=== PATIENT | male | born 1940 | race Caucasian/White ===

== ENCOUNTER 2021-04-04 08:58 | Inpatient (IN) | payer MEDICARE ==
[~2021-04-04] VITALS: Ht 185.4 cm; Wt 80.0 kg
[~2021-04-04 08:58] MED LIST: ALLOPURINOL300 MG PO; AMOXICILLIN500 MG PO; AVODART0.5 MG PO; AZITHROMYCIN500 MG PO; CEPHALEXIN500 MG PO; COLCHICINE PO; LORTAB 5/3255 MG PO; LOSARTAN POTASS25 MG PO; NAPROSYN500 MG PO; OMNICEF300 M1 PO; ROBITUSSIN AC10 ML PO; TERAZOSIN5 MG PO
[2021-04-04 09:28] LABS: GFR > 60 ML/MIN (>=60 (CALC)); GFR FOR AFR.AMER. > 60 ML/MIN (>=60 (CALC))
[2021-04-04 09:30] LABS: HEMATOCRIT 32.7 % (39.0-50.0); HEMOGLOBIN 10.7 g/dl (14.0-18.0); MEAN CELL VOLUME 100.3 fL CALC (80.0-100.0); MEAN CORPUSCULAR HGB 32.8 pG CALC (26.0-32.0); MEAN CORPUSCULAR HGB CONC 32.7 g/dL CAL (32.0-36.0); NEUT# 7.84 thou/uL (1.82-7.42); RED BLOOD COUNT 3.26 mill/uL (4.70-6.10); RED CELL DISTRI WIDTH 14.4 % (11.5-15.5)
[2021-04-04 09:50] LABS: ALBUMIN 2.8 g/dL (3.2-5.0); ALKALINE PHOSPHATASE 125 u/l (38-126); ANION GAP 13 (6-22 (CALC)); BILIRUBIN, TOTAL 0.7 mg/dL (0.0-1.4); BUN 36 mg/dL (8-23); BUN/CREATININE RATIO 32 (12-20 (CALC)); CARBON DIOXIDE 22 mmol/l (22-30); CHLORIDE 106 mmol/l (95-108); CREATININE 1.1 mg/dL (0.7-1.3); GFR > 60 ML/MIN (>=60 (CALC)); GFR FOR AFR.AMER. > 60 ML/MIN (>=60 (CALC)); POTASSIUM 3.3 mmol/l (3.5-5.1); SODIUM 137 mmol/l (137-146); TOTAL PROTEIN 6.5 g/dL (6.3-8.2)
[2021-04-04 09:54] LABS: SGOT/AST 78 u/l (19-48)
[2021-04-04] MEDS ORDERED: DEXAMETHASON0.5 MG PO (09:54)
[2021-04-04] MEDS ORDERED: COLCHICINE0.6 M2 PO (09:55)
[2021-04-04 10:58] LABS: ACT PARTIAL THROMBO TIME 22.3 SECONDS (20.0-32.5); INTERNATIONAL NORMALIZED RATIO 1.1 RATIO (0.7-1.3); PROTHROMBIN TIME 11.6 SECONDS (9.0-12.5)
[2021-04-04] MEDS ORDERED: FUROSEMIDE20 MG PO (11:01)
[2021-04-04 13:11] VITALS: BP 130/68
[2021-04-04 15:49] VITALS: BP 147/80
[2021-04-04 19:10] VITALS: BP 161/74
[2021-04-05] VITALS (8 sets, daily range): BP systolic 160–186; BP diastolic 80–93
[2021-04-05 05:37] LABS: HEMATOCRIT 30.1 % (39.0-50.0); HEMOGLOBIN 10.3 g/dl (14.0-18.0); IMMATURE GRANULOCYTES 4.4 % (0.0-5.0); MEAN CELL VOLUME 97.1 fL CALC (80.0-100.0); MEAN CORPUSCULAR HGB 33.2 pG CALC (26.0-32.0); MEAN CORPUSCULAR HGB CONC 34.2 g/dL CAL (32.0-36.0); NEUT# 8.53 thou/uL (1.82-7.42); RED BLOOD COUNT 3.1 mill/uL (4.70-6.10); RED CELL DISTRI WIDTH 14.3 % (11.5-15.5)
[2021-04-05 06:05] LABS: ALBUMIN 2.5 g/dL (3.2-5.0); ALKALINE PHOSPHATASE 104 u/l (38-126); BILIRUBIN, TOTAL 0.6 mg/dL (0.0-1.4); BUN 37 mg/dL (8-23); BUN/CREATININE RATIO 36 (12-20 (CALC)); C-REACTIVE PROTEIN 4.5 mg/dL (0-0.9); CARBON DIOXIDE 22 mmol/l (22-30); CHLORIDE 103 mmol/l (95-108); GFR > 60 ML/MIN (>=60 (CALC)); GFR FOR AFR.AMER. > 60 ML/MIN (>=60 (CALC)); MAGNESIUM 2.2 mg/dL (1.6-2.3); SGOT/AST 60 u/l (19-48); SODIUM 139 mmol/l (137-146); TOTAL PROTEIN 5.8 g/dL (6.3-8.2)
[2021-04-05 06:07] LABS: ANION GAP 18 (6-22 (CALC)); POTASSIUM 3.6 mmol/l (3.5-5.1)
[2021-04-05 14:35] LABS: URINE BILIRUBIN - DIPSTICK NEGATIVE (NEGATIVE); URINE BLOOD DIPSTICK NEGATIVE (NEGATIVE); URINE COLOR YELLOW; URINE GLUCOSE - DIPSTICK NEGATIVE (NEGATIVE); URINE KETONE NEGATIVE (NEGATIVE); URINE LEUK ESTERASE NEGATIVE (NEGATIVE); URINE NITRITE - DIPSTICK NEGATIVE (Negative); URINE PH 6.5 (4.5-8.0); URINE PROTEIN - DIPSTICK NEGATIVE (NEG-TRACE); URINE UROBILINOGEN - DIPSTICK 0.2 E.U./dL (0.2)
[2021-04-06] VITALS (8 sets, daily range): BP systolic 120–197; BP diastolic 66–93
[2021-04-06 05:30] LABS: HEMOGLOBIN 10.1 g/dl (14.0-18.0); MEAN CELL VOLUME 98.4 fL CALC (80.0-100.0); MEAN CORPUSCULAR HGB 33.1 pG CALC (26.0-32.0); MEAN CORPUSCULAR HGB CONC 33.7 g/dL CAL (32.0-36.0); NEUT# 5.94 thou/uL (1.82-7.42); RED BLOOD COUNT 3.05 mill/uL (4.70-6.10); RED CELL DISTRI WIDTH 14.6 % (11.5-15.5)
[2021-04-06 05:38] LABS: ALBUMIN 2.3 g/dL (3.2-5.0); ALKALINE PHOSPHATASE 91 u/l (38-126); ANION GAP 12 (6-22 (CALC)); BILIRUBIN, TOTAL 0.5 mg/dL (0.0-1.4); BUN 38 mg/dL (8-23); BUN/CREATININE RATIO 33 (12-20 (CALC)); CARBON DIOXIDE 22 mmol/l (22-30); CHLORIDE 112 mmol/l (95-108); CREATININE 1.2 mg/dL (0.7-1.3); GFR 58 ML/MIN (>=60 (CALC)); GFR FOR AFR.AMER. > 60 ML/MIN (>=60 (CALC)); SGOT/AST 55 u/l (19-48); SODIUM 141 mmol/l (137-146); TOTAL PROTEIN 5.5 g/dL (6.3-8.2)
[2021-04-07] VITALS: BP 164/85
[2021-04-07 04:00] VITALS: BP 167/85
[2021-04-07 05:50] LABS: HEMOGLOBIN 9.5 g/dl (14.0-18.0); MEAN CORPUSCULAR HGB 32.4 pG CALC (26.0-32.0); MEAN CORPUSCULAR HGB CONC 32.8 g/dL CAL (32.0-36.0); NEUT# 6.4 thou/uL (1.82-7.42); RED BLOOD COUNT 2.93 mill/uL (4.70-6.10); RED CELL DISTRI WIDTH 14.9 % (11.5-15.5)
[2021-04-07 06:13] LABS: IMMATURE GRANULOCYTES 6.3 % (0.0-5.0)
[2021-04-07 06:14] LABS: ALBUMIN 2.2 g/dL (3.2-5.0); ALKALINE PHOSPHATASE 81 u/l (38-126); ANION GAP 9 (6-22 (CALC)); BILIRUBIN, TOTAL 0.7 mg/dL (0.0-1.4); BUN 30 mg/dL (8-23); BUN/CREATININE RATIO 31 (12-20 (CALC)); C-REACTIVE PROTEIN 5.1 mg/dL (0-0.9); CARBON DIOXIDE 23 mmol/l (22-30); CHLORIDE 111 mmol/l (95-108); GFR > 60 ML/MIN (>=60 (CALC)); GFR FOR AFR.AMER. > 60 ML/MIN (>=60 (CALC)); POTASSIUM 3.9 mmol/l (3.5-5.1); SGOT/AST 39 u/l (19-48); SODIUM 140 mmol/l (137-146); TOTAL PROTEIN 5.2 g/dL (6.3-8.2)
[2021-04-07 08:00] VITALS: BP 164/83
[2021-04-07 10:27] VITALS: BP 168/83
[2021-04-07] MEDS ORDERED: XARELTO STARTER1 TAB PO (13:26)
[2021-04-07] MEDS ORDERED: ZITHROMAX250 MG PO (13:26)
== END 2021-04-07 16:08 | disposition home health service (06) | DRG 177 ==
LOC: ED 08:58 → ED-I 10:40 → ED 10:59 → MS2 11:00
PROVIDERS: Family Medicine; Nurse Practitioner; ADMIT Hospitalist; ATTEND Hospitalist
PROC: XW033E5 Introduction of Remdesivir Anti-infective into Peripheral Vein, Percutaneous Approach, New Technology Group 5 (ICD-10-PCS; principal; 2021-04-04)
DX: U07.1 COVID-19 (principal); J12.82 Pneumonia due to coronavirus disease 2019; I26.99 Other pulmonary embolism without acute cor pulmonale; J96.01 Acute respiratory failure with hypoxia; E87.2 Acidosis; I10 Essential (primary) hypertension; F03.90 Unspecified dementia, unspecified severity, without behavioral disturbance, psychotic disturbance, mood disturbance, and anxiety; M10.9 Gout, unspecified
CPT/HCPCS: J1644; J1650; Q9967

== ENCOUNTER 2023-05-06 14:36 | Inpatient (IN) | payer MEDICARE ==
[~2023-05-06] VITALS: Ht 182.9 cm; Wt 88.0 kg
[2023-05-06] VITALS (74 sets, daily range): BP systolic 76–148; BP diastolic 32–75
[~2023-05-06 14:36] MED LIST changes: +COLCHICINE0.6 M2 PO; +DEXAMETHASON0.5 MG PO; +FUROSEMIDE20 MG PO; +XARELTO STARTER1 TAB PO; +ZITHROMAX250 MG PO
[2023-05-06] MEDS ORDERED: B12 FAST DIS5000 MCG PO (14:57)
[2023-05-06] MEDS ORDERED: FERROUS SULFAT325 MG PO (14:59)
[2023-05-06] MEDS ORDERED: SENNA/DSS1 TAB PO (15:00)
[2023-05-06] MEDS ORDERED: TAMSULOSIN0.4 MG PO (15:01)
[2023-05-06] MEDS ORDERED: CARVEDILOL12.5 MG PO (15:03)
[2023-05-06 15:12] LABS: BASO% 0.3 % (0-3); EOS% 3.3 % (0-8); HEMOGLOBIN 6.8 g/dl (14.0-18.0); IMMATURE GRANULOCYTES 0.6 % (0.0-5.0); LYMPH% 11.9 % (15-41); MEAN CORPUSCULAR HGB 35.2 pG CALC (26.0-32.0); MEAN CORPUSCULAR HGB CONC 30.9 g/dL CAL (32.0-36.0); MONO% 14.5 % (2-13); NEUT# 6.77 thou/uL (1.82-7.42); NEUT% 69.4 % (42-76); RED BLOOD COUNT 1.93 mill/uL (4.70-6.10); RED CELL DISTRI WIDTH 14.7 % (11.5-15.5)
[2023-05-06 15:22] LABS: BUN 39 mg/dL (8-23); BUN/CREATININE RATIO 25 (12-20 (CALC)); CARBON DIOXIDE 23 mmol/l (22-30); CREATININE 1.6 mg/dL (0.7-1.3); GFR FOR AFR.AMER. 50 ML/MIN (>=60 (CALC)); GFR OTHER RACES 41 ML/MIN (>=60 (CALC))
[2023-05-06 15:23] LABS: ALBUMIN 2.8 g/dL (3.2-5.0); ALKALINE PHOSPHATASE 85 u/l (38-126); LIPASE 12 u/l (23-300)
[2023-05-06 15:25] LABS: ANION GAP 9 (6-22 (CALC)); CHLORIDE 110 mmol/l (95-108); POTASSIUM 4.1 mmol/l (3.5-5.1); SODIUM 138 mmol/l (137-146)
[2023-05-06 15:41] LABS: BILIRUBIN, TOTAL 0.8 mg/dL (0.2-1.3); SGOT/AST 40 u/l (19-48)
[2023-05-06 16:42] LABS: URINE BLOOD DIPSTICK Negative (NEGATIVE); URINE COLOR Yellow; URINE GLUCOSE - DIPSTICK Negative (NEGATIVE); URINE KETONE Trace mg/dL (NEGATIVE); URINE LEUK ESTERASE Negative (NEGATIVE); URINE NITRITE - DIPSTICK Negative (Negative); URINE PH 5.5 (4.5-8.0); URINE PROTEIN - DIPSTICK Trace mg/dL (NEG-TRACE); URINE SPECIFIC GRAVITY 1.015
[2023-05-07] VITALS (22 sets, daily range): BP systolic 123–160; BP diastolic 61–88
[2023-05-07 06:37] LABS: BASO% 0.3 % (0-3); EOS% 5.4 % (0-8); HEMATOCRIT 27.6 % (39.0-50.0); IMMATURE GRANULOCYTES 0.9 % (0.0-5.0); LYMPH% 13.1 % (15-41); MEAN CORPUSCULAR HGB 34.6 pG CALC (26.0-32.0); MEAN CORPUSCULAR HGB CONC 33.3 g/dL CAL (32.0-36.0); MONO% 13.2 % (2-13); NEUT# 6.63 thou/uL (1.82-7.42); NEUT% 67.1 % (42-76); RED BLOOD COUNT 2.66 mill/uL (4.70-6.10); RED CELL DISTRI WIDTH 18.4 % (11.5-15.5)
[2023-05-07 06:53] LABS: HEMOGLOBIN 9.2 g/dl (14.0-18.0); MEAN CELL VOLUME 103.8 fL CALC (80.0-100.0)
[2023-05-07 07:08] LABS: ALBUMIN 2.9 g/dL (3.2-5.0); ALKALINE PHOSPHATASE 94 u/l (38-126); ANION GAP 11 (6-22 (CALC)); BUN 33 mg/dL (8-23); BUN/CREATININE RATIO 31 (12-20 (CALC)); CARBON DIOXIDE 21 mmol/l (22-30); CHLORIDE 113 mmol/l (95-108); CREATININE 1.1 mg/dL (0.7-1.3); GFR FOR AFR.AMER. > 60 ML/MIN (>=60 (CALC)); GFR OTHER RACES > 60 ML/MIN (>=60 (CALC)); MAGNESIUM 2.4 mg/dL (1.6-2.3); POTASSIUM 4.1 mmol/l (3.5-5.1); SGOT/AST 24 u/l (19-48); SODIUM 140 mmol/l (137-146); TOTAL PROTEIN 6.2 g/dL (6.3-8.2)
[2023-05-07 07:09] LABS: BILIRUBIN, TOTAL 1.2 mg/dL (0.2-1.3)
[2023-05-07 19:31] LABS: BASO% 0.4 % (0-3); EOS% 4.2 % (0-8); HEMATOCRIT 30.8 % (39.0-50.0); HEMOGLOBIN 9.8 g/dl (14.0-18.0); IMMATURE GRANULOCYTES 0.9 % (0.0-5.0); LYMPH% 10.2 % (15-41); MEAN CELL VOLUME 105.5 fL CALC (80.0-100.0); MEAN CORPUSCULAR HGB 33.6 pG CALC (26.0-32.0); MEAN CORPUSCULAR HGB CONC 31.8 g/dL CAL (32.0-36.0); MONO% 11.3 % (2-13); NEUT# 7.87 thou/uL (1.82-7.42); RED BLOOD COUNT 2.92 mill/uL (4.70-6.10); RED CELL DISTRI WIDTH 18.5 % (11.5-15.5)
[2023-05-08] VITALS (25 sets, daily range): BP systolic 37–149; BP diastolic 14–85
[2023-05-08 07:01] LABS: BASO% 0.4 % (0-3); EOS% 4.6 % (0-8); HEMATOCRIT 27.8 % (39.0-50.0); HEMOGLOBIN 9.3 g/dl (14.0-18.0); IMMATURE GRANULOCYTES 0.9 % (0.0-5.0); MEAN CELL VOLUME 105.3 fL CALC (80.0-100.0); MEAN CORPUSCULAR HGB 35.2 pG CALC (26.0-32.0); MEAN CORPUSCULAR HGB CONC 33.5 g/dL CAL (32.0-36.0); MONO% 15.2 % (2-13); NEUT# 6.4 thou/uL (1.82-7.42); NEUT% 66.9 % (42-76); RED BLOOD COUNT 2.64 mill/uL (4.70-6.10); RED CELL DISTRI WIDTH 17.9 % (11.5-15.5)
[2023-05-08 07:26] LABS: ALBUMIN 2.4 g/dL (3.2-5.0); ALKALINE PHOSPHATASE 90 u/l (38-126); ANION GAP 11 (6-22 (CALC)); BUN 23 mg/dL (8-23); BUN/CREATININE RATIO 24 (12-20 (CALC)); CARBON DIOXIDE 19 mmol/l (22-30); CHLORIDE 114 mmol/l (95-108); GFR FOR AFR.AMER. > 60 ML/MIN (>=60 (CALC)); GFR OTHER RACES > 60 ML/MIN (>=60 (CALC)); MAGNESIUM 2.1 mg/dL (1.6-2.3); SGOT/AST 22 u/l (19-48); SODIUM 140 mmol/l (137-146); TOTAL PROTEIN 5.4 g/dL (6.3-8.2)
[2023-05-09] VITALS (21 sets, daily range): BP systolic 111–149; BP diastolic 60–119
[2023-05-09 06:47] LABS: BASO% 0.3 % (0-3); EOS% 6.4 % (0-8); HEMATOCRIT 26.9 % (39.0-50.0); HEMOGLOBIN 8.8 g/dl (14.0-18.0); IMMATURE GRANULOCYTES 0.7 % (0.0-5.0); LYMPH% 11.5 % (15-41); MEAN CELL VOLUME 106.3 fL CALC (80.0-100.0); MEAN CORPUSCULAR HGB 34.8 pG CALC (26.0-32.0); MEAN CORPUSCULAR HGB CONC 32.7 g/dL CAL (32.0-36.0); MONO% 13.8 % (2-13); NEUT# 7.29 thou/uL (1.82-7.42); NEUT% 67.3 % (42-76); RED BLOOD COUNT 2.53 mill/uL (4.70-6.10); RED CELL DISTRI WIDTH 17.5 % (11.5-15.5)
[2023-05-09 07:02] LABS: ALBUMIN 2.6 g/dL (3.2-5.0); ALKALINE PHOSPHATASE 106 u/l (38-126); ANION GAP 11 (6-22 (CALC)); BILIRUBIN, TOTAL 0.9 mg/dL (0.2-1.3); BUN 22 mg/dL (8-23); BUN/CREATININE RATIO 23 (12-20 (CALC)); CARBON DIOXIDE 22 mmol/l (22-30); CHLORIDE 113 mmol/l (95-108); GFR FOR AFR.AMER. > 60 ML/MIN (>=60 (CALC)); GFR OTHER RACES > 60 ML/MIN (>=60 (CALC)); MAGNESIUM 2.1 mg/dL (1.6-2.3); POTASSIUM 4.1 mmol/l (3.5-5.1); SGOT/AST 27 u/l (19-48); SODIUM 142 mmol/l (137-146); TOTAL PROTEIN 5.6 g/dL (6.3-8.2)
[2023-05-10] VITALS (23 sets, daily range): BP systolic 95–137; BP diastolic 52–89
[2023-05-10 05:59] LABS: BASO% 0.4 % (0-3); EOS% 6.6 % (0-8); HEMATOCRIT 27.2 % (39.0-50.0); IMMATURE GRANULOCYTES 0.8 % (0.0-5.0); LYMPH% 13.8 % (15-41); MEAN CELL VOLUME 105.4 fL CALC (80.0-100.0); MEAN CORPUSCULAR HGB 34.9 pG CALC (26.0-32.0); MEAN CORPUSCULAR HGB CONC 33.1 g/dL CAL (32.0-36.0); MONO% 14.7 % (2-13); NEUT# 6.17 thou/uL (1.82-7.42); NEUT% 63.7 % (42-76); RED BLOOD COUNT 2.58 mill/uL (4.70-6.10); RED CELL DISTRI WIDTH 17.1 % (11.5-15.5)
[2023-05-10 06:13] LABS: ALBUMIN 2.8 g/dL (3.2-5.0); ALKALINE PHOSPHATASE 107 u/l (38-126); ANION GAP 9 (6-22 (CALC)); BILIRUBIN, TOTAL 0.9 mg/dL (0.2-1.3); BUN 27 mg/dL (8-23); BUN/CREATININE RATIO 24 (12-20 (CALC)); CARBON DIOXIDE 24 mmol/l (22-30); CHLORIDE 110 mmol/l (95-108); CREATININE 1.1 mg/dL (0.7-1.3); GFR FOR AFR.AMER. > 60 ML/MIN (>=60 (CALC)); GFR OTHER RACES > 60 ML/MIN (>=60 (CALC)); MAGNESIUM 2.1 mg/dL (1.6-2.3); POTASSIUM 3.6 mmol/l (3.5-5.1); SGOT/AST 27 u/l (19-48); SODIUM 140 mmol/l (137-146)
[2023-05-11] VITALS (14 sets, daily range): BP systolic 97–135; BP diastolic 54–83
[2023-05-11 07:52] LABS: BASO% 0.5 % (0-3); EOS% 6.1 % (0-8); HEMATOCRIT 27.4 % (39.0-50.0); HEMOGLOBIN 9.1 g/dl (14.0-18.0); IMMATURE GRANULOCYTES 0.9 % (0.0-5.0); MEAN CELL VOLUME 105.4 fL CALC (80.0-100.0); MEAN CORPUSCULAR HGB CONC 33.2 g/dL CAL (32.0-36.0); MONO% 16.1 % (2-13); NEUT# 6.46 thou/uL (1.82-7.42); NEUT% 61.4 % (42-76); RED BLOOD COUNT 2.6 mill/uL (4.70-6.10); RED CELL DISTRI WIDTH 16.8 % (11.5-15.5)
[2023-05-11 08:27] LABS: ALBUMIN 2.7 g/dL (3.2-5.0); ALKALINE PHOSPHATASE 105 u/l (38-126); ANION GAP 11 (6-22 (CALC)); BUN 37 mg/dL (8-23); BUN/CREATININE RATIO 33 (12-20 (CALC)); CARBON DIOXIDE 25 mmol/l (22-30); CHLORIDE 108 mmol/l (95-108); CREATININE 1.1 mg/dL (0.7-1.3); GFR FOR AFR.AMER. > 60 ML/MIN (>=60 (CALC)); GFR OTHER RACES > 60 ML/MIN (>=60 (CALC)); POTASSIUM 3.4 mmol/l (3.5-5.1); SGOT/AST 23 u/l (19-48); SODIUM 141 mmol/l (137-146); TOTAL PROTEIN 5.6 g/dL (6.3-8.2)
[2023-05-12 00:03] VITALS: BP 131/58
[2023-05-12 04:44] VITALS: BP 124/61
[2023-05-12 05:02] VITALS: BP 124/61
[2023-05-12 06:50] LABS: BASO% 0.2 % (0-3); EOS% 3.9 % (0-8); HEMATOCRIT 29.2 % (39.0-50.0); HEMOGLOBIN 9.6 g/dl (14.0-18.0); LYMPH% 11.9 % (15-41); MEAN CELL VOLUME 105.4 fL CALC (80.0-100.0); MEAN CORPUSCULAR HGB 34.7 pG CALC (26.0-32.0); MEAN CORPUSCULAR HGB CONC 32.9 g/dL CAL (32.0-36.0); MONO% 15.9 % (2-13); NEUT# 8.6 thou/uL (1.82-7.42); NEUT% 67.1 % (42-76); RED BLOOD COUNT 2.77 mill/uL (4.70-6.10); RED CELL DISTRI WIDTH 16.5 % (11.5-15.5)
[2023-05-12 07:01] LABS: ALBUMIN 2.7 g/dL (3.2-5.0); ALKALINE PHOSPHATASE 124 u/l (38-126); ANION GAP 11 (6-22 (CALC)); BILIRUBIN, TOTAL 1.1 mg/dL (0.2-1.3); BUN 37 mg/dL (8-23); BUN/CREATININE RATIO 31 (12-20 (CALC)); CARBON DIOXIDE 23 mmol/l (22-30); CHLORIDE 110 mmol/l (95-108); CREATININE 1.2 mg/dL (0.7-1.3); GFR FOR AFR.AMER. > 60 ML/MIN (>=60 (CALC)); GFR OTHER RACES 58 ML/MIN (>=60 (CALC)); MAGNESIUM 2.1 mg/dL (1.6-2.3); POTASSIUM 3.8 mmol/l (3.5-5.1); SGOT/AST 29 u/l (19-48); SODIUM 141 mmol/l (137-146); TOTAL PROTEIN 5.8 g/dL (6.3-8.2)
[2023-05-12 08:53] VITALS: BP 102/52
[2023-05-12 17:44] VITALS: BP 102/66
[2023-05-12 19:30] VITALS: BP 119/71
[2023-05-13] VITALS (7 sets, daily range): BP systolic 105–138; BP diastolic 45–69
[2023-05-13 04:40] LABS: BASO% 0.3 % (0-3); EOS% 3.5 % (0-8); HEMATOCRIT 29.1 % (39.0-50.0); HEMOGLOBIN 9.5 g/dl (14.0-18.0); IMMATURE GRANULOCYTES 1.2 % (0.0-5.0); LYMPH% 10.8 % (15-41); MEAN CELL VOLUME 105.1 fL CALC (80.0-100.0); MEAN CORPUSCULAR HGB 34.3 pG CALC (26.0-32.0); MEAN CORPUSCULAR HGB CONC 32.6 g/dL CAL (32.0-36.0); MONO% 14.9 % (2-13); NEUT# 11.73 thou/uL (1.82-7.42); NEUT% 69.3 % (42-76); RED BLOOD COUNT 2.77 mill/uL (4.70-6.10); RED CELL DISTRI WIDTH 16.2 % (11.5-15.5)
[2023-05-13 04:56] LABS: ALBUMIN 2.7 g/dL (3.2-5.0); ALKALINE PHOSPHATASE 129 u/l (38-126); ANION GAP 12 (6-22 (CALC)); BILIRUBIN, TOTAL 1.1 mg/dL (0.2-1.3); BUN 43 mg/dL (8-23); BUN/CREATININE RATIO 34 (12-20 (CALC)); CARBON DIOXIDE 26 mmol/l (22-30); CHLORIDE 107 mmol/l (95-108); CREATININE 1.3 mg/dL (0.7-1.3); GFR FOR AFR.AMER. > 60 ML/MIN (>=60 (CALC)); GFR OTHER RACES 52 ML/MIN (>=60 (CALC)); MAGNESIUM 2.1 mg/dL (1.6-2.3); POTASSIUM 3.7 mmol/l (3.5-5.1); SGOT/AST 32 u/l (19-48); SODIUM 141 mmol/l (137-146); TOTAL PROTEIN 5.8 g/dL (6.3-8.2)
[2023-05-13 12:55] LABS: HEMATOCRIT 30.8 % (39.0-50.0); HEMOGLOBIN 10.1 g/dl (14.0-18.0); MEAN CELL VOLUME 105.1 fL CALC (80.0-100.0); MEAN CORPUSCULAR HGB 34.5 pG CALC (26.0-32.0); MEAN CORPUSCULAR HGB CONC 32.8 g/dL CAL (32.0-36.0); RED BLOOD COUNT 2.93 mill/uL (4.70-6.10); RED CELL DISTRI WIDTH 16.5 % (11.5-15.5)
[2023-05-14] VITALS (7 sets, daily range): BP systolic 106–137; BP diastolic 55–69
[2023-05-14 05:33] LABS: BASO% 0.2 % (0-3); EOS% 2.8 % (0-8); HEMATOCRIT 29.7 % (39.0-50.0); HEMOGLOBIN 9.9 g/dl (14.0-18.0); IMMATURE GRANULOCYTES 1.2 % (0.0-5.0); LYMPH% 8.2 % (15-41); MEAN CELL VOLUME 105.3 fL CALC (80.0-100.0); MEAN CORPUSCULAR HGB 35.1 pG CALC (26.0-32.0); MEAN CORPUSCULAR HGB CONC 33.3 g/dL CAL (32.0-36.0); MONO% 12.5 % (2-13); NEUT# 12.7 thou/uL (1.82-7.42); NEUT% 75.1 % (42-76); RED BLOOD COUNT 2.82 mill/uL (4.70-6.10); RED CELL DISTRI WIDTH 16.1 % (11.5-15.5)
[2023-05-14 05:39] LABS: ALBUMIN 2.4 g/dL (3.2-5.0); ALKALINE PHOSPHATASE 120 u/l (38-126); ANION GAP 10 (6-22 (CALC)); BILIRUBIN, TOTAL 1.2 mg/dL (0.2-1.3); BUN 46 mg/dL (8-23); BUN/CREATININE RATIO 37 (12-20 (CALC)); CARBON DIOXIDE 27 mmol/l (22-30); CHLORIDE 108 mmol/l (95-108); CREATININE 1.3 mg/dL (0.7-1.3); GFR FOR AFR.AMER. > 60 ML/MIN (>=60 (CALC)); GFR OTHER RACES 52 ML/MIN (>=60 (CALC)); MAGNESIUM 2.3 mg/dL (1.6-2.3); POTASSIUM 3.8 mmol/l (3.5-5.1); SGOT/AST 38 u/l (19-48); SODIUM 141 mmol/l (137-146); TOTAL PROTEIN 5.4 g/dL (6.3-8.2)
[2023-05-14 05:51] LABS: C-REACTIVE PROTEIN 19.5 mg/dL (0-0.9)
[2023-05-14 11:21] LABS: URINE BILIRUBIN - DIPSTICK Negative (NEGATIVE); URINE BLOOD DIPSTICK Trace-lysed (NEGATIVE); URINE COLOR Yellow; URINE GLUCOSE - DIPSTICK Negative (NEGATIVE); URINE KETONE Negative (NEGATIVE); URINE LEUK ESTERASE Negative (NEGATIVE); URINE NITRITE - DIPSTICK Negative (Negative); URINE PH 5.5 (4.5-8.0); URINE PROTEIN - DIPSTICK Negative (NEG-TRACE); URINE SPECIFIC GRAVITY 1.015; URINE UROBILINOGEN - DIPSTICK 0.2 E.U./dL (0.2)
[2023-05-15] VITALS (7 sets, daily range): BP systolic 111–142; BP diastolic 49–63
[2023-05-15 06:08] LABS: BASO% 0.2 % (0-3); EOS% 3.4 % (0-8); HEMATOCRIT 29.5 % (39.0-50.0); HEMOGLOBIN 9.5 g/dl (14.0-18.0); IMMATURE GRANULOCYTES 1.1 % (0.0-5.0); LYMPH% 9.7 % (15-41); MEAN CELL VOLUME 105.4 fL CALC (80.0-100.0); MEAN CORPUSCULAR HGB 33.9 pG CALC (26.0-32.0); MEAN CORPUSCULAR HGB CONC 32.2 g/dL CAL (32.0-36.0); NEUT# 11.31 thou/uL (1.82-7.42); NEUT% 72.6 % (42-76); RED BLOOD COUNT 2.8 mill/uL (4.70-6.10); RED CELL DISTRI WIDTH 16.2 % (11.5-15.5)
[2023-05-15 06:25] LABS: ALBUMIN 2.5 g/dL (3.2-5.0); CREATININE 1.4 mg/dL (0.7-1.3); MAGNESIUM 2.4 mg/dL (1.6-2.3); POTASSIUM 3.5 mmol/l (3.5-5.1); TOTAL PROTEIN 5.3 g/dL (6.3-8.2)
[2023-05-15 06:41] LABS: BILIRUBIN, TOTAL 0.7 mg/dL (0.2-1.3); C-REACTIVE PROTEIN 20.5 mg/dL (0-0.9)
[2023-05-16] VITALS (7 sets, daily range): BP systolic 106–125; BP diastolic 51–61
[2023-05-16 06:34] LABS: BASO% 0.2 % (0-3); EOS% 4.4 % (0-8); HEMOGLOBIN 9.4 g/dl (14.0-18.0); IMMATURE GRANULOCYTES 0.9 % (0.0-5.0); LYMPH% 13.4 % (15-41); MEAN CELL VOLUME 105.1 fL CALC (80.0-100.0); MEAN CORPUSCULAR HGB 34.1 pG CALC (26.0-32.0); MEAN CORPUSCULAR HGB CONC 32.4 g/dL CAL (32.0-36.0); MONO% 14.2 % (2-13); NEUT# 9.41 thou/uL (1.82-7.42); NEUT% 66.9 % (42-76); RED BLOOD COUNT 2.76 mill/uL (4.70-6.10); RED CELL DISTRI WIDTH 16.1 % (11.5-15.5)
[2023-05-16 06:53] LABS: ALBUMIN 2.2 g/dL (3.2-5.0); BILIRUBIN, TOTAL 0.6 mg/dL (0.2-1.3); CREATININE 1.4 mg/dL (0.7-1.3); MAGNESIUM 2.5 mg/dL (1.6-2.3); POTASSIUM 3.4 mmol/l (3.5-5.1); TOTAL PROTEIN 4.9 g/dL (6.3-8.2)
[2023-05-16 07:22] LABS: C-REACTIVE PROTEIN 19.3 mg/dL (0-0.9)
[2023-05-17 05:09] LABS: HEMATOCRIT 28.4 % (39.0-50.0); HEMOGLOBIN 9.3 g/dl (14.0-18.0); MEAN CELL VOLUME 105.2 fL CALC (80.0-100.0); MEAN CORPUSCULAR HGB 34.4 pG CALC (26.0-32.0); MEAN CORPUSCULAR HGB CONC 32.7 g/dL CAL (32.0-36.0); RED BLOOD COUNT 2.7 mill/uL (4.70-6.10); RED CELL DISTRI WIDTH 15.9 % (11.5-15.5)
[2023-05-17 05:21] LABS: ALBUMIN 2.1 g/dL (3.2-5.0); BILIRUBIN, TOTAL 0.6 mg/dL (0.2-1.3); CREATININE 1.4 mg/dL (0.7-1.3); MAGNESIUM 2.5 mg/dL (1.6-2.3); POTASSIUM 3.7 mmol/l (3.5-5.1); TOTAL PROTEIN 4.9 g/dL (6.3-8.2)
[2023-05-17 07:23] VITALS: BP 124/55
[2023-05-17] MEDS ORDERED: LACTULOSE10 GM/15 M PO (10:05)
[2023-05-17] MEDS ORDERED: XARELTO15 MG PO (10:05)
[2023-05-17] MEDS ORDERED: AMOX/K CLAV875 M1 PO (10:05)
[2023-05-17] MEDS ORDERED: LASIX 40 MG TAB40 MG PO (10:05)
[2023-05-17 10:53] VITALS: BP 121/52
== END 2023-05-17 14:25 | DRG 308 ==
LOC: ED 14:36 → ED-I 18:15 → ED 19:34 → MS2 19:35 → ICU 19:35 → MS2 05-07 15:27 → ICU 05-07 19:18 → MS2 05-09 12:23
PROVIDERS: Family Medicine; Student in an Organized Health Care Education/Training Program; ADMIT Student in an Organized Health Care Education/Training Program; ATTEND Student in an Organized Health Care Education/Training Program
PROC: 30233N1 Transfusion of Nonautologous Red Blood Cells into Peripheral Vein, Percutaneous Approach (ICD-10-PCS; principal; 2023-05-06)
DX: I48.20 Chronic atrial fibrillation, unspecified (principal); I50.31 Acute diastolic (congestive) heart failure; J18.9 Pneumonia, unspecified organism; I82.431 Acute embolism and thrombosis of right popliteal vein; I82.411 Acute embolism and thrombosis of right femoral vein; K56.7 Ileus, unspecified; D64.9 Anemia, unspecified; I11.0 Hypertensive heart disease with heart failure; K59.00 Constipation, unspecified; R62.7 Adult failure to thrive; I08.1 Rheumatic disorders of both mitral and tricuspid valves; F03.90 Unspecified dementia, unspecified severity, without behavioral disturbance, psychotic disturbance, mood disturbance, and anxiety; M10.9 Gout, unspecified; E03.9 Hypothyroidism, unspecified; L29.9 Pruritus, unspecified; T44.7X5A Adverse effect of beta-adrenoreceptor antagonists, initial encounter; Z96.653 Presence of artificial knee joint, bilateral; Z68.24 Body mass index [BMI] 24.0-24.9, adult; Z86.16 Personal history of COVID-19; Z60.2 Problems related to living alone; Z20.822 Contact with and (suspected) exposure to COVID-19
CPT/HCPCS: J1650; J3370; P9016; Q9967; S0164

== ENCOUNTER 2023-05-18 11:45 | Observation (INO) | payer MEDICARE ==
[2023-05-18] VITALS (26 sets, daily range): BP systolic 97–147; BP diastolic 37–66
[~2023-05-18] VITALS: Ht 188 cm; Wt 86.8 kg
[~2023-05-18 11:45] MED LIST changes: +AMOX/K CLAV875 M1 PO; +B12 FAST DIS5000 MCG PO; +CARVEDILOL12.5 MG PO; +FERROUS SULFAT325 MG PO; +LACTULOSE10 GM/15 M PO; +LASIX 40 MG TAB40 MG PO; +SENNA/DSS1 TAB PO; +TAMSULOSIN0.4 MG PO; +XARELTO15 MG PO
[2023-05-18 12:18] LABS: BASO% 0.3 % (0-3); EOS% 2.4 % (0-8); HEMATOCRIT 33.3 % (39.0-50.0); HEMOGLOBIN 10.6 g/dl (14.0-18.0); IMMATURE GRANULOCYTES 1.3 % (0.0-5.0); LYMPH% 10.2 % (15-41); MEAN CELL VOLUME 106.4 fL CALC (80.0-100.0); MEAN CORPUSCULAR HGB 33.9 pG CALC (26.0-32.0); MEAN CORPUSCULAR HGB CONC 31.8 g/dL CAL (32.0-36.0); NEUT# 12.48 thou/uL (1.82-7.42); NEUT% 75.8 % (42-76); RED BLOOD COUNT 3.13 mill/uL (4.70-6.10); RED CELL DISTRI WIDTH 15.9 % (11.5-15.5)
[2023-05-18 12:35] LABS: CREATININE 1.4 mg/dL (0.7-1.3)
[2023-05-18 12:42] LABS: ALBUMIN 2.8 g/dL (3.2-5.0); BILIRUBIN, TOTAL 0.9 mg/dL (0.2-1.3); POTASSIUM 4.8 mmol/l (3.5-5.1); TOTAL PROTEIN 6.4 g/dL (6.3-8.2)
[2023-05-19 02:30] VITALS: BP 189/85
== END 2023-05-19 05:10 | disposition expired ==
LOC: ED 11:45 → ED-I 12:35 → ED 12:35 → ED-I 12:35 → ED 15:12 → MS2 15:13
PROVIDERS: Family Medicine; ADMIT Student in an Organized Health Care Education/Training Program; ATTEND Student in an Organized Health Care Education/Training Program
DX: J96.01 Acute respiratory failure with hypoxia (principal); J18.9 Pneumonia, unspecified organism; I10 Essential (primary) hypertension; I48.91 Unspecified atrial fibrillation; F03.90 Unspecified dementia, unspecified severity, without behavioral disturbance, psychotic disturbance, mood disturbance, and anxiety; Z66 Do not resuscitate; Z51.5 Encounter for palliative care; Z86.16 Personal history of COVID-19; Z86.718 Personal history of other venous thrombosis and embolism; Z20.822 Contact with and (suspected) exposure to COVID-19
CPT/HCPCS: G0378; J1650